=== PATIENT | female | born 1990 | race Caucasian/White ===

== ENCOUNTER 2020-09-02 09:57 | Emergency (ER) | payer OTHER ==
[2020-09-02 10:21] VITALS: BP 118/74
--- NOTE | 2020-09-02 11:14 | ER Document Report ---
ED Medical Screen (RME) - General Chief Complaint: Headache Stated Complaint: POST NASAL SURGICAL PAIN Time Seen by Provider: 09/02/20 11:07 Mode of Arrival: Ambulatory Information source: Patient Notes: 30-year-old female patient presents emergency department chief complaint of severe nasal pain and sinus pressure. Patient had surgery to her sinuses on 08/28/2020 at [facility]. She states she has been unable to eat or drink, she is taking Percocet without relief of her pain. She states they called the ENT provider who did the surgery, he was not available but is staff told her that this was normal and they would not see her until tomorrow. Patient is alert, oriented, appears drowsy. I have greeted and performed a rapid initial assessment of this patient. A comp rehensive ED assessment and evaluation of the patient, analysis of test results and completion of the medical decision making process will be conducted by additional ED providers. I have specifically instructed the patient or family members with the patient to immediately return to any nursing staff should anything change in the patient's condition or with their chief complaint. - Related Data Allergies/Adverse Reactions: adhesive Allergy (Verified 09/02/20 11:07) azithromycin [From Zithromax] Allergy (Verified 09/02/20 11:07) cephalexin [From Keflex] Allergy (Verified 09/02/20 11:07) ibuprofen Allergy (Verified 09/02/20 11:07) latex Allergy (Verified 09/02/20 11:07) Home Medications: imitrex. zoloft Past Medical History - Social History Chew tobacco use (# tins/day): No Frequency of alcohol use: None Drug Abuse: None Physical Exam - Vital signs Vitals: Temp Pulse Resp BP Pulse Ox 98.2 F 92 18 118/74 100 09/02/20 10:19 09/02/20 10:19 09/02/20 10:19 09/02/20 10:19 09/02/20 10:19 Course - Vital Signs Vital signs: Temp Pulse Resp BP Pulse Ox 98.2 F 92 18 118/74 100 09/02/20 10:19 09/02/20 10:19 09/02/20 10:19 09/02/20 10:19 09/02/20 10:19
[2020-09-02] MEDS ORDERED: ONDANSETRON HCL INJ/PF 4 MG/2 ML SDV IV ONE (11:27)
[2020-09-02 11:48] LABS: ABSOLUTE EOSINOPHILS # (AUTO) 0.2 10^3/uL (0.0-0.6); ABSOLUTE LYMPHOCYTES (AUTO) 1.4 10^3/uL (0.5-4.7); ABSOLUTE MONOCYTES (AUTO) 0.6 10^3/uL (0.1-1.4); ABSOLUTE NEUT (AUTO) 5.2 10^3/uL (1.7-8.2); BASOPHILS % (AUTO) 0.3 % (0-2); EOSINOPHILS % (AUTO) 2.6 % (0-6); HEMATOCRIT 40.3 % (36.0-47.0); HEMOGLOBIN 13.7 g/dL (12.0-15.5); MEAN CORPUSCULAR HEMOGLOBIN 29.6 pg (27.0-33.4); MEAN CORPUSCULAR HGB CONC 34.1 g/dL (32.0-36.0); MEAN CORPUSCULAR VOLUME 87 fl (80-97); MONOCYTES % (AUTO) 8.4 % (3-13); PLATELET COUNT 310 10^3/uL (150-450); RED BLOOD COUNT 4.65 10^6/uL (3.72-5.28); RED CELL DISTRIBUTION WIDTH 13.2 % (11.5-14.0); SEGMENTED NEUTROPHILS % (AUTO) 69.7 % (42-78); TOTAL CELLS COUNTED % (AUTO) 100 %; WHITE BLOOD COUNT 7.5 10^3/uL (4.0-10.5)
[2020-09-02] MEDS ORDERED: PROMETHAZINE HCL INJ 25 MG/1 ML VIAL IV ONE (11:58)
[2020-09-02 12:06] LABS: ALBUMIN 4.5 g/dL (3.5-5.0); ALKALINE PHOSPHATASE 93 U/L (38-126); ANION GAP 13 (5-19); ASPARTATE AMINO TRANSFERASE 21 U/L (14-36); BILIRUBIN,TOTAL 0.9 mg/dL (0.2-1.3); BLOOD UREA NITROGEN 10 mg/dL (7-20); CALCIUM 9.8 mg/dL (8.4-10.2); CARBON DIOXIDE 23 mmol/L (22-30); CHLORIDE 100 mmol/L (98-107); GLUCOSE 91 mg/dL (75-110); POTASSIUM 4.7 mmol/L (3.6-5.0); TOTAL PROTEIN 7.9 g/dL (6.3-8.2)
--- NOTE | 2020-09-02 12:11 | RADIOLOGY REPORT (SQ) ---
EXAM DESCRIPTION: CT FACIAL AREA WITHOUT IMAGES COMPLETED DATE/TIME: 09/02/2020 11:47 am REASON FOR STUDY: sinus pain, surgery on 08/28/20 COMPARISON: None. TECHNIQUE: Noncontrasted images through the facial bones and orbits windowed for bone and soft tissu e. Additional coronal and sagittal reconstructed images reviewed. All images stored on PACS. All CT scanners at this facility use dose modulation, iterative reconstruction, and/or weight based d osing when appropriate to reduce radiation dose to as low as reasonably achievable (ALARA). [facility]: Dose Right [facility]: CareDose [facility]: Dose Right [facility]: Teradose 4D [facility]: [employer] RADIATION DOSE: CT Rad equipment meets quality standard of care and radiation dose reduction techniq ues were employed. CTDIvol: 30.4 mGy. DLP: 578 mGy-cm. LIMITATIONS: None. FINDINGS: FACIAL BONES: No fracture or bone lesion. ORBITS: Intact. No fracture. Symmetric intact globes and retroorbital soft tissues. PARANASAL SINUSES: Prior nasal sinus surgery is suggested. The antrostomy windows appear partially occluded with soft tissue density. Fairly extensive mucoperiosteal thickening involving the ethmoid s inuses, bilateral maxillary sinuses and to a slightly lesser degree the sphenoid sinuses more so on t he right. Air-fluid levels are suggested within the bilateral maxillary sinuses. Fairly extensive areas soft tissue density within the right nasal cavity may be related to post surgi tavo changes and or inflammatory changes. SOFT TISSUES: No mass or edema. INFERIOR BRAIN: Limited view. No acute findings. OTHER: No other significant finding. IMPRESSION: 1. The patient has a prior history of nasal sinus surgery. The antrostomy windows appe ar partially occluded with soft tissue density, may be related to post surgical changes versus inflam matory changes. 2. Fairly extensive ethmoid, bilateral maxillary and to a slightly lesser degree sphenoid sinus dise ase. Air-fluid levels in the bilateral maxillary sinuses suggest acute superimposed changes. 3. Soft tissue density within the right nasal cavity maybe related post surgical changes and or infl ammatory changes. TECHNICAL DOCUMENTATION: JOB ID: [id number] Quality ID # [id number]: Final reports with documentation of one or more dose reduction techniques (e.g., Au tomated exposure control, adjustment of the mA and/or kV according to patient size, use of iterative reconstruction technique) 2010 [employer]- All Rights Reserved Reading location - IP/workstation name: [email or web address]
[2020-09-02] MEDS ORDERED: METOCLOPRAMIDE HCL INJ/PF 10 MG/2 ML SDV IV ONE (13:39)
[2020-09-02] MEDS ORDERED: NORMAL SALINE 1000 ML 1,000 ML IV ONE (13:39)
--- NOTE | 2020-09-02 13:41 | ER Document Report ---
ED General - General Chief Complaint: Headache Stated Complaint: POST NASAL SURGICAL PAIN Time Seen by Provider: 09/02/20 11:07 Mode of Arrival: Ambulatory - HPI Notes: Patient is a 30-year-old female, 4 days status post nasal and sinus surgery, who presents to the emergency department for evaluation of headache. She was sent home with oxycodone. She has been taking Tylenol. She is had nausea and a severe right-sided headache. She states is worsened by position. She also has facial pain and swelling. She states she is pretty much just sleeping from the pain medication, wakes up and her pain seems to be worse. She denies any visual changes. She states that her temperature has not been any higher than 99 F. She has had some nausea but no emesis. No chills. She has continued to have so me clear and bloody sinus drainage, told to her by her surgeon to be normal. She currently puts her pain at a 4 out of 5. - Related Data Allergies/Adverse Reactions: adhesive Allergy (Verified 09/02/20 11:07) azithromycin [From Zithromax] Allergy (Verified 09/02/20 11:07) cephalexin [From Keflex] Allergy (Verified 09/02/20 11:07) ibuprofen Allergy (Verified 09/02/20 11:07) latex Allergy (Verified 09/02/20 11:07) Home Medications: imitrex. zoloft Past Medical History - General Information source: Patient - Social History Smoking Status: Never Smoker Chew tobacco use (# tins/day): No Frequency of alcohol use: None Drug Abuse: None Family History: Reviewed & Not Pertinent Neurological Medical History: Reports: Hx Migraine GI Medical History: Reports: Hx Gastroesophageal Reflux Disease Psychiatric Medical History: Reports: Hx Depression Past Surgical History: Reports: Other - Sinus/nasal surgery Review of Systems - Review of Systems Constitutional: No symptoms reported EENT: See HPI Cardiovascular: No symptoms reported Respiratory: No symptoms reported Gastrointestinal: No symptoms reported Genitourinary: No symptoms reported Musculoskeletal: No symptoms reported Skin: No symptoms reported Neurological/Psychological: See HPI -: Yes All other systems reviewed and negative Physical Exam - Vital signs Vitals: Temp Pulse Resp BP Pulse Ox 98.2 F 92 18 118/74 100 09/02/20 10:19 09/02/20 10:19 09/02/20 10:19 09/02/20 10:19 09/02/20 10:19 - Notes Notes: This is a drowsy appearing 30-year-old female, who appears her stated age. She is resting when I enter the room. She wakes easily to verbal stimuli. Vital signs reviewed, please refer to chart. Head is normocephalic, atraumatic. Moderate amount of eyelid and periorbital edema. Pupils equal round, reactive to light. There is some nasal turbinate edema and no aura bleeding or purulent discharge. Oral mucosa is moist. Pharynx is without erythema or exudate. Neck is supple without meningismus. Heart is regular rate and rhythm. Lungs are clear to auscultation bilaterally. Abdomen is soft, nontender, normoactive bowel sounds throughout. Extremities without cyanosis, clubbing. Posterior calves are nontender. Peripheral pulses are equal. Skin is warm and dry. Patient is awake, alert, oriented x3. Cranial nerves II - XII are grossly intact without focal neurological deficits. Strength is plus 5 out of 5 bilateral upper and lower extremities. Sensation is intact. Reflexes symmetrical. Intact [id number], rapid alternating movements, [id number]. Course - Re-evaluation Re-evalutation: 09/02/20 13:43 Patient presents to the emergency department for evaluation. She is 5 days status post nasal and sinus surgery. She is afebrile her vital signs are stable. She had laboratory investigations and medications as ordered through triage, as well as imaging. Imaging shows findings consistent with postoperative edema and inflammation. She has no leukocytosis. She feels somewhat better after Phenergan and Zofran. I will give her Reglan and fluids. I am hesitant to give this patient Toradol as she has asthmatic reactions to ibuprofen. I do not want to give steroids in this patient who was disclosed to surgery. We talked at length about inflammation contributing to her pain. She states she has been sleeping most of the time, has been laying flat. I strongly advised her to sleep in a recliner, keeping her head more upright, which would help minimize the edema that she is experiencing. We talked about other possible medications like Sudafed and phenylephrine, and I cautioned her that she should contact her surgeon's office before trying any new medications. She voiced understanding. Otherwise she has a follow-up appointment with her surgeon tomorrow. She is told to keep that. I will send her home with a small amount of Phenergan, she states she has only a few tablets left. She is to return to the ED with worsening or new concerning symptoms of any sort. - Vital Signs Vital signs: Temp Pulse Resp BP Pulse Ox 98.2 F 92 18 118/74 100 09/02/20 10:19 09/02/20 10:19 09/02/20 10:19 09/02/20 10:19 09/02/20 10:19 - Laboratory Result Diagrams: 09/02/20 11:21 09/02/20 11:21 Laboratory results interpreted by me: 09/02/20 11:21 Sodium 136.0 L - Diagnostic Test Radiology reviewed: Reports reviewed Radiology results interpreted by me: 09/02/20 13:[address] 09/02/20 11:12 IMPRESSION: 1. The patient has a prior history of nasal sinus surgery. The antrostomy windows appear partially occluded with soft tissue density, may be related to post surgical changes versus inflammatory changes. 2. Fairly extensive ethmoid, bilateral maxillary and to a slightly lesser degree sphenoid sinus disease. Air-fluid levels in the bilateral maxillary sinuses suggest acute superimposed changes. 3. Soft tissue density within the right nasal cavity maybe related post surgical changes and or inflammatory changes. Discharge - Discharge Clinical Impression: Postoperative pain Migraine headache Qualifiers: Migraine type: unspecified Condition: Stable Disposition: HOME, SELF-CARE Instructions: Antinausea Medication ([facility]), Reglan ([facility]) Additional Instructions: Consider minimizing the use of Percocet. Take Tylenol, 1 g every 8 hours. Try to sleep upright to minimize edema as discussed. Discussed any other medicatio ns with your surgeon's office. Follow-up with them as scheduled tomorrow. If you develop fevers greater than 100.4, vomiting, uncontrolled bleeding, or any other new or concerning symptoms, please return immediately to the emergency department for evaluation.
== END 2020-09-02 14:42 | disposition home or self-care (01) ==
LOC: ER 09:57
DX: G89.18 Other acute postprocedural pain (principal); G43.909 Migraine, unspecified, not intractable, without status migrainosus; Z79.899 Other long term (current) drug therapy; Z91.048 Other nonmedicinal substance allergy status; Z88.1 Allergy status to other antibiotic agents; Z88.8 Allergy status to other drugs, medicaments and biological substances; Z91.040 Latex allergy status
CPT/HCPCS: 99285; 96374; 96375; 36415; 84703; 85025; 80053; 70486; J2765; J2550; J2405